=== PATIENT | male | born 1975 | race Caucasian/White ===

== ENCOUNTER 2017-02-03 17:01 | Emergency (ER) | payer MEDICAID ==
[~2017-02-03] VITALS: Ht 182.9 cm; Wt 94.8 kg
[~2017-02-03 17:01] MED LIST: CYCL-259 PO; DIAZ10TA PO; FAMO-79 PO; GABA-827 PO; GABA300C10 PO; HYDR10TA4 PO; HYDR50CA PO; HYDR50TA13 PO; IBUP200T48 PO; LURA20TA PO; LURA40TA PO; LUTE40CA PO; METH750T87 PO; NAPR250T6 PO; OMEP10CA2 PO; ONDA4TAB12 PO; PROC5TAB40 PO; QUET200T4 PO; TRAZ100T15 PO
[2017-02-03 17:14] VITALS: BP 110/75
[2017-02-03] MEDS ORDERED: DIAZEPAM 5 MG TABLET PO ONE (18:00)
[2017-02-03] MEDS ORDERED: DIAZEPAM 5 MG TABLET ONE (18:08)
== END 2017-02-03 18:44 | disposition home or self-care (01) ==
LOC: ED 18:38
DX: S39.012A Strain of muscle, fascia and tendon of lower back, initial encounter (principal); M51.36 Other intervertebral disc degeneration, lumbar region; X58.XXXA Exposure to other specified factors, initial encounter; Y93.89 Activity, other specified; Y99.8 Other external cause status; Y92.89 Other specified places as the place of occurrence of the external cause
CPT/HCPCS: 72110; 99284; J7512

== ENCOUNTER 2017-06-17 10:42 | Emergency (ER) | payer MEDICAID ==
[~2017-06-17] VITALS: Ht 182.9 cm; Wt 98.1 kg
[~2017-06-17 10:42] MED LIST changes: -IBUP200T48 PO; +IBUP200T49 PO
[2017-06-17] MEDS ORDERED: DIAZEPAM 5 MG TABLET PO ONE (11:30)
[2017-06-17] MEDS ORDERED: HYDROcodone/APAP 5/325 TABLET PO ONE (11:30)
[2017-06-17] MEDS ORDERED: KETOROLAC 30 MG/1 ML IM ONE (11:30)
[2017-06-17] MEDS ORDERED: HYDROcodone/APAP 5/325 TABLET ONE (11:36)
[2017-06-17] MEDS ORDERED: DIAZEPAM 5 MG TABLET ONE (11:36)
[2017-06-17] MEDS ORDERED: KETOROLAC 30 MG/1 ML ONE (11:36)
[2017-06-17 12:19] VITALS: BP 124/62
== END 2017-06-17 12:27 | disposition home or self-care (01) ==
LOC: ED 12:15
DX: S39.012A Strain of muscle, fascia and tendon of lower back, initial encounter (principal); M19.90 Unspecified osteoarthritis, unspecified site; G43.909 Migraine, unspecified, not intractable, without status migrainosus; G89.29 Other chronic pain; F10.20 Alcohol dependence, uncomplicated; F17.200 Nicotine dependence, unspecified, uncomplicated; Y93.89 Activity, other specified; Y92.89 Other specified places as the place of occurrence of the external cause; Y99.8 Other external cause status; X58.XXXA Exposure to other specified factors, initial encounter
CPT/HCPCS: 72110; 96372; 99284; J1885

== ENCOUNTER 2017-10-21 17:34 | Emergency (ER) | payer MEDICAID ==
[~2017-10-21] VITALS: Ht 182.9 cm; Wt 94.0 kg
[~2017-10-21 17:34] MED LIST changes: +TRAZ-137 PO; -TRAZ100T15 PO
[2017-10-21 17:42] VITALS: BP 109/75
[2017-10-21 18:06] LABS: BASOPHILS # (AUTO) 0.04 x10^3/uL (0-0.1); BASOPHILS % (AUTO) 1 % (0-1); EOSINOPHILS # (AUTO) 0.16 x10^3/uL (0-0.4); EOSINOPHILS % (AUTO) 2 % (1-7); LYMPHOCYTES # (AUTO) 2.57 x10^3/uL (1-3.4); LYMPHOCYTES % (AUTO) 38 % (22-44); MD NO; MEAN CORPUSCULAR HEMOGLOBIN 29.2 pg (27.5-34.5); MEAN CORPUSCULAR HGB CONC 34.7 g/dL (33.2-36.2); MEAN PLATELET VOLUME 9.1 fL (7.4-10.4); MONOCYTES # (AUTO) 0.49 x10^3/uL (0.2-0.8); MONOCYTES % (AUTO) 7 % (2-9); NEUTROPHILS # (AUTO) 3.46 x10^3/uL (1.8-6.8); NEUTROPHILS % (AUTO) 52 % (42-75); PLATELET COUNT 193 x10^3/uL (130-400); RED BLOOD COUNT 4.89 x10^6/uL (4.38-5.82); RED CELL DISTRIBUTION WIDTH 13.3 % (9.4-14.8)
[2017-10-21 18:11] LABS: ALANINE AMINOTRANSFERASE 36 U/L (12-78); ANION GAP 9 mmol/L (5-15); CALCIUM 8.5 mg/dL (8.5-10.1); CHLORIDE 106 mmol/L (98-107); CREATININE 1.45 mg/dL (0.7-1.3)
[2017-10-21 18:13] LABS: ALKALINE PHOSPHATASE 63 U/L (45-117); BILIRUBIN,TOTAL 0.4 mg/dL (0.2-1.0); TOTAL PROTEIN 7.8 g/dL (6.4-8.2)
== END 2017-10-21 19:35 | disposition left against medical advice (07) ==
LOC: ED 19:29
DX: R10.9 Unspecified abdominal pain (principal); M79.606 Pain in leg, unspecified
CPT/HCPCS: 36415; 80053; 85025; 99284

== ENCOUNTER 2017-11-01 03:18 | Emergency (ER) | payer MEDICAID ==
[~2017-11-01] VITALS: Ht 182.9 cm; Wt 93.1 kg
[2017-11-01 03:20] VITALS: BP 107/78
[2017-11-01] MEDS ORDERED: TRAZ-137 PO (03:24)
[2017-11-01] MEDS ORDERED: ONDA4TAB10 PO (03:24)
[2017-11-01] MEDS ORDERED: METHOCARBAMOL 750 MG TABLET ONE (03:47)
[2017-11-01] MEDS ORDERED: KETOROLAC 30 MG/1 ML ONE (03:47)
[2017-11-01] MEDS ORDERED: KETOROLAC 30 MG/1 ML IM ONE (04:00)
[2017-11-01] MEDS ORDERED: METHOCARBAMOL 750 MG TABLET PO ONE (04:00)
== END 2017-11-01 04:18 | disposition home or self-care (01) ==
LOC: ED 03:52
DX: M25.561 Pain in right knee (principal); M79.661 Pain in right lower leg; M25.562 Pain in left knee; M79.662 Pain in left lower leg; F10.20 Alcohol dependence, uncomplicated; G89.29 Other chronic pain; G43.909 Migraine, unspecified, not intractable, without status migrainosus; M54.9 Dorsalgia, unspecified; M25.572 Pain in left ankle and joints of left foot
CPT/HCPCS: 96372; 99283; J1885

== ENCOUNTER 2018-01-10 12:24 | Emergency (ER) | payer MEDICAID ==
[~2018-01-10] VITALS: Ht 182.9 cm; Wt 97.5 kg
[~2018-01-10 12:24] MED LIST changes: +ONDA4TAB10 PO
[2018-01-10 12:34] VITALS: BP 104/74
[2018-01-10] MEDS ORDERED: KETOROLAC 30 MG/1 ML ONE (13:48)
[2018-01-10] MEDS ORDERED: DIAZEPAM 5 MG TABLET ONE (13:48)
[2018-01-10] MEDS ORDERED: DIAZEPAM 5 MG TABLET PO ONE (14:00)
[2018-01-10] MEDS ORDERED: KETOROLAC 30 MG/1 ML IM ONE (14:00)
== END 2018-01-10 14:06 | disposition home or self-care (01) ==
LOC: ED 13:55
DX: S39.012A Strain of muscle, fascia and tendon of lower back, initial encounter (principal); G89.29 Other chronic pain; G43.909 Migraine, unspecified, not intractable, without status migrainosus; F17.200 Nicotine dependence, unspecified, uncomplicated; X58.XXXA Exposure to other specified factors, initial encounter; Y93.89 Activity, other specified; Y92.89 Other specified places as the place of occurrence of the external cause; Y99.8 Other external cause status
CPT/HCPCS: 96372; 99283; J1885

== ENCOUNTER 2018-05-18 09:33 | Emergency (ER) | payer MEDICAID ==
[~2018-05-18] VITALS: Ht 182.9 cm; Wt 97.0 kg
[2018-05-18 10:05] VITALS: BP 116/83
== END 2018-05-18 11:28 | disposition home or self-care (01) ==
LOC: ED 11:26
DX: S40.011A Contusion of right shoulder, initial encounter (principal); M54.2 Cervicalgia; M47.892 Other spondylosis, cervical region; G43.909 Migraine, unspecified, not intractable, without status migrainosus; G89.29 Other chronic pain; W01.0XXA Fall on same level from slipping, tripping and stumbling without subsequent striking against object, initial encounter; Y93.01 Activity, walking, marching and hiking; Y92.410 Unspecified street and highway as the place of occurrence of the external cause; Y99.8 Other external cause status
CPT/HCPCS: 72050; 99283

== ENCOUNTER 2018-06-07 05:07 | Emergency (ER) | payer MEDICAID ==
[~2018-06-07] VITALS: Ht 182.9 cm; Wt 96.8 kg
[2018-06-07] MEDS ORDERED: CYCLOBENZAPRINE 10 MG TABLET ONE (05:36)
[2018-06-07] MEDS ORDERED: KETOROLAC 30 MG/1 ML ONE (05:36)
--- NOTE | 2018-06-07 05:42 | NUR ---
PT. MEDICATED PER MAY. PT. TAKES FLEXERIL AT HOME BUT STATES "I COULDN'T GET MY MEDS BECAUSE MY THREW ME OUT." PT. REPORTS HE HAS HAD TORODOL SHOTS WELL IN THE PAST.
[2018-06-07] MEDS ORDERED: CYCLOBENZAPRINE 10 MG TABLET PO ONE (06:00)
[2018-06-07] MEDS ORDERED: KETOROLAC 30 MG/1 ML IM ONE (06:00)
[2018-06-07] MEDS ORDERED: ACETAMINOPHEN 500 MG TABLET ONE (06:08)
[2018-06-07 06:16] VITALS: BP 123/91
[2018-06-07] MEDS ORDERED: ACETAMINOPHEN 500 MG TABLET PO ONE (06:30)
== END 2018-06-07 06:17 | disposition home or self-care (01) ==
LOC: ED 06:15
DX: S39.012A Strain of muscle, fascia and tendon of lower back, initial encounter (principal); G43.909 Migraine, unspecified, not intractable, without status migrainosus; G89.29 Other chronic pain; W50.1XXA Accidental kick by another person, initial encounter; Y93.89 Activity, other specified; Y92.009 Unspecified place in unspecified non-institutional (private) residence as the place of occurrence of the external cause; Y99.8 Other external cause status
CPT/HCPCS: 96372; 99283; J1885

== ENCOUNTER 2018-06-24 04:56 | Emergency (ER) | payer MEDICAID ==
[~2018-06-24] VITALS: Ht 182.9 cm; Wt 95.8 kg
[2018-06-24 05:01] VITALS: BP 131/90
[2018-06-24] MEDS ORDERED: ONDANSETRON ODT 4 MG PO ONE (06:00)
[2018-06-24] MEDS ORDERED: hydrOXyzine 50MG TABLET PO ONE (06:00)
[2018-06-24] MEDS ORDERED: ONDANSETRON ODT 4 MG ONE (06:07)
[2018-06-24] MEDS ORDERED: hydrOXyzine 50MG TABLET ONE (06:07)
== END 2018-06-24 06:24 | disposition home or self-care (01) ==
LOC: ED 06:13
DX: F41.1 Generalized anxiety disorder (principal); R11.0 Nausea; G89.29 Other chronic pain; G43.909 Migraine, unspecified, not intractable, without status migrainosus
CPT/HCPCS: 99284; Q0162

== ENCOUNTER 2020-03-23 10:11 | Emergency (ER) | payer MEDICAID ==
[~2020-03-23] VITALS: Ht 182.9 cm; Wt 90.0 kg
[~2020-03-23 10:11] MED LIST changes: +HYDR-2995 PO; -HYDR10TA4 PO; -HYDR50TA13 PO; +HYDR50TA99 PO; +ONDA-89 PO; -ONDA4TAB12 PO; -TRAZ-137 PO; +TRAZ-175 PO
--- NOTE | 2020-03-23 10:20 | NUR ---
PT AMBULATED TO BR WITHOUT DIFFICULTY. ER PA AT BS NOW.
[2020-03-23] MEDS ORDERED: BUPR1FIL3 SL (10:25)
[2020-03-23] MEDS ORDERED: KETOROLAC 30 MG/1 ML IM ONE (10:30)
[2020-03-23] MEDS ORDERED: METHOCARBAMOL 750 MG TABLET PO ONE (10:30)
[2020-03-23] MEDS ORDERED: KETOROLAC 60 MG/2 ML ONE (10:30)
[2020-03-23] MEDS ORDERED: METHOCARBAMOL 750 MG TABLET ONE (10:30)
--- NOTE | 2020-03-23 10:40 | NUR ---
PT MEDICATED PER ORDERS. PT ALSO REQUESTING REFERRAL FOR [facility]. PT STATES HE TRIED A FEW PLACES BUT "THEY WOULDN'T TAKE ME". LIST OF LOCAL DETOX OPTIONS PROVIDED AND CALLED [facility] TO SPEAK WITH PT.
[2020-03-23 11:16] VITALS: BP 115/63
--- NOTE | 2020-03-23 11:23 | NUR ---
TARAH PAINTING WAS IN FOR RECHECK.
--- NOTE | 2020-03-23 11:36 | NUR ---
COFFEE PROVIDED TO PT. D/C INSTRUCTIONS, MEDS & F/U APPT RV'WD WITH PT, HE VERBALIZES UNDERSTANDING. RX GIVEN X2. PT AMBULATED OUT OF ED WITHOUT DIFFICULTY.
== END 2020-03-23 11:37 | disposition home or self-care (01) ==
LOC: ED 10:56
DX: S29.012A Strain of muscle and tendon of back wall of thorax, initial encounter (principal); M54.6 Pain in thoracic spine; G43.909 Migraine, unspecified, not intractable, without status migrainosus; W11.XXXA Fall on and from ladder, initial encounter; Y93.89 Activity, other specified; Y92.89 Other specified places as the place of occurrence of the external cause; Y99.8 Other external cause status
CPT/HCPCS: 96372; 99283; J1885

== ENCOUNTER 2020-04-12 10:27 | Emergency (ER) | payer MEDICAID ==
[~2020-04-12] VITALS: Ht 182.9 cm; Wt 87.0 kg
[~2020-04-12 10:27] MED LIST changes: +BUPR1FIL3 SL
--- NOTE | 2020-04-12 10:50 | NUR ---
WENT TO [facility] FOR ETOH WITHDRAW, STATES HE HAS SI, "I HAD MANY, MANY BAD THOUGHTS TODAY, BUT NO PLAN, LAST DRINK WAS A HR AGO, PT A& O X4, VSS, ROOM SECURE AND BELONGINGS PLACED IN LOCKER
[2020-04-12 11:16] LABS: BASOPHILS % (AUTO) 1 % (0-1); EOSINOPHILS % (AUTO) 0 % (1-7); LYMPHOCYTES % (AUTO) 19 % (22-44); MEAN CORPUSCULAR HEMOGLOBIN 27.8 pg (27.5-34.5); MEAN CORPUSCULAR HGB CONC 33.5 g/dL (33.2-36.2); MEAN PLATELET VOLUME 9.3 fL (7.4-10.4); MONOCYTES % (AUTO) 4 % (2-9); NEUTROPHILS % (AUTO) 77 % (42-75); PLATELET COUNT 157 x10^3/uL (130-400); RED BLOOD COUNT 4.46 x10^6/uL (4.38-5.82); RED CELL DISTRIBUTION WIDTH 16.3 % (9.4-14.8)
[2020-04-12 11:23] LABS: MD NO
[2020-04-12 11:26] LABS: ALBUMIN 3.5 g/dL (3.4-5.0); ANION GAP 6 mmol/L (5-15); CALCIUM 8.5 mg/dL (8.5-10.1); CHLORIDE 108 mmol/L (98-107)
[2020-04-12 11:27] LABS: CREATININE 0.65 mg/dL (0.7-1.3)
[2020-04-12 11:30] LABS: SALICYLATE LEVEL < 1.7 mg/dL (2.8-20.0)
[2020-04-12 11:39] LABS: AMPHETAMINE SCREEN, URINE Negative (Negative); BARBITURATE SCREEN, URINE Negative (Negative); BENZODIAZEPINE SCREEN, URINE Positive (Negative); CANNABINOID SCREEN, URINE Positive (Negative); COCAINE SCREEN, URINE Negative (Negative); METHADONE SCREEN, URINE Negative (Negative); OPIATE SCREEN, URINE Negative (Negative)
--- NOTE | 2020-04-12 11:50 | NUR ---
LATE ENTRY, MEAL ANGELITA PROVIDED, NO DISTRESS
--- NOTE | 2020-04-12 12:42 | NUR ---
pt in room, resting, no distress , seen by christo espinoza,
[2020-04-12] MEDS ORDERED: FLUOXETINE HCL 20 MG CAPSULE PO ONE (13:00)
[2020-04-12] MEDS ORDERED: BUPRENORPHINE/NALOXONE 8-2MG SL ONE (13:00)
[2020-04-12] MEDS ORDERED: HYDROXYZINE PAMOATE 50MG CAP PO ONE (13:00)
[2020-04-12 13:24] VITALS: BP 110/62
[2020-04-12] MEDS ORDERED: FLUOXETINE HCL 20 MG CAPSULE ONE (14:02)
[2020-04-12] MEDS ORDERED: HYDROXYZINE PAMOATE 50MG CAP ONE (14:08)
== END 2020-04-12 14:42 | disposition home or self-care (01) ==
LOC: ED 11:05
DX: R45.851 Suicidal ideations (principal); F10.120 Alcohol abuse with intoxication, uncomplicated; F32.9 Major depressive disorder, single episode, unspecified; Y90.9 Presence of alcohol in blood, level not specified
CPT/HCPCS: 36415; 80048; 80299; 80307; 80320; 80329; 82040; 85025; 99284; J0574; G0480

== ENCOUNTER 2020-05-25 06:14 | Emergency (ER) | payer MEDICAID ==
[~2020-05-25] VITALS: Ht 182.9 cm; Wt 84.6 kg
[~2020-05-25 06:14] MED LIST changes: -CYCL-259 PO; +CYCL10TA2 PO; +NAPR-872 PO; -NAPR250T6 PO
[2020-05-25 06:35] VITALS: BP 116/76
--- NOTE | 2020-05-25 06:35 | NUR ---
pt reports running out of anti nausea medications about a week ago and cannot get in to see his pcp anytime soon, reports he was hoping to get a medication refill. pt is nad, resting on gurney, appears comfortable, placed on spo2/bp monitoring at this time. vss. wctm
--- NOTE | 2020-05-25 06:52 | NUR ---
Patient given discharge instructions and they have confirmed that they understand the instructions. Patient ambulatory with steady gait. nad, denies additional questions or needs, no personal belongings left in room after dc
== END 2020-05-25 07:07 | disposition home or self-care (01) ==
LOC: ED 06:45
DX: R11.0 Nausea (principal); Z76.0 Encounter for issue of repeat prescription; G43.909 Migraine, unspecified, not intractable, without status migrainosus
CPT/HCPCS: 99281

== ENCOUNTER 2020-06-19 09:48 | Emergency (ER) | payer MEDICAID ==
[~2020-06-19] VITALS: Ht 182.9 cm; Wt 81.1 kg
--- NOTE | 2020-06-19 10:02 | NUR ---
BILAT HIP PAIN, R WORSE THAN L, THAT SHOOTS DOWN LEGS X 1 WEEK. PT STATES HE WALKS EVERYWHERE HE DOES NOT HAVE A CAR, AND THIS IS EFFECTING HIS WALKING. PT DENIES NUMBNESS/TINGLING, LOSE OF BOWEL CONTROL, AND TRAMA. POSTIONED TO COMFORT, HOOKED UP TO MONITORS, VSS, NADN. AWAITING ORDERS.
[2020-06-19] MEDS ORDERED: KETOROLAC 30 MG/1 ML IM ONE (10:30)
[2020-06-19] MEDS ORDERED: KETOROLAC 60 MG/2 ML ONE (10:40)
[2020-06-19 10:46] VITALS: BP 111/78
--- NOTE | 2020-06-19 10:46 | NUR ---
PT BACK FROM XRAY, NADN, VSS, MEDICATED PER EMAR
--- NOTE | 2020-06-19 11:55 | NUR ---
Patient/Caregiver given discharge instructions and they have confirmed that they understand the instructions. Patient ambulatory with steady gait.
== END 2020-06-19 11:57 | disposition home or self-care (01) ==
LOC: ED 10:03
DX: M76.9 Unspecified enthesopathy, lower limb, excluding foot (principal); I10 Essential (primary) hypertension
CPT/HCPCS: 73502; 96372; 99283; J1885

== ENCOUNTER 2020-07-24 01:36 | Emergency (ER) | payer MEDICAID ==
[~2020-07-24] VITALS: Ht 180.3 cm; Wt 82.0 kg
[2020-07-24 01:41] VITALS: BP 123/74
[2020-07-24] MEDS ORDERED: PROMETHAZINE 25 MG/ML, 1ML ONE (02:17)
[2020-07-24] MEDS ORDERED: PROMETHAZINE 25 MG/ML, 1ML IM ONE (02:30)
== END 2020-07-24 02:49 | disposition home or self-care (01) ==
LOC: ED 02:10
DX: Z00.8 Encounter for other general examination (principal); I10 Essential (primary) hypertension; G43.909 Migraine, unspecified, not intractable, without status migrainosus; F17.210 Nicotine dependence, cigarettes, uncomplicated
CPT/HCPCS: 96372; 99283; J2550

== ENCOUNTER 2020-08-08 09:55 | Emergency (ER) | payer MEDICAID ==
[~2020-08-08] VITALS: Ht 181.6 cm; Wt 83.9 kg
--- NOTE | 2020-08-08 10:03 | NUR ---
senior medical writer: EKG done in triage
--- NOTE | 2020-08-08 10:22 | NUR ---
DR BOSS AT BS FOR EXAM
--- NOTE | 2020-08-08 10:23 | NUR ---
PT C/O DIZZINESS X 5 DAYS. REPORTS DRINKING 2- 24 OZ BEERS TODAY, "I DRINK EVERY DAY", SMOKES MARIJUANA OCCASIONALLY. RESP EVEN & UNLABORED, SPEECH CLEAR, SKIN WNL. TAKES ZOFRAN FOR INTERMITTENT NAUSEA.
[2020-08-08 10:25] VITALS: BP 113/81
--- NOTE | 2020-08-08 10:28 | NUR ---
PT STATES "I HAVE TO BE SOMEWHERE IN AN HOUR" PT STATES "I CAN'T STAY" "I DON'T HAVE TIME FOR THE IV AND BLOOD WORK".
[2020-08-08] MEDS ORDERED: SODIUM CHLORIDE FLUSH 10ML SYR IVF ONE (10:30)
[2020-08-08] MEDS ORDERED: SODIUM CHLORIDE 0.9% 1,000ML IVBOLUS ONE (10:30)
--- NOTE | 2020-08-08 10:32 | NUR ---
PT ABLE TO GET DRESSED W/OUT INCIDENT. DISCUSSED INCREASING FLUID AND FOOD INTAKE. PT AMBULATORY TO DC DESK W/ STEADY GAIT. URGED PT TO RETURN IF SX WORSEN; UNDERSTANDING VERBALIZED.
== END 2020-08-08 10:35 | disposition home or self-care (01) ==
LOC: ED 10:10
DX: R42 Dizziness and giddiness (principal); I10 Essential (primary) hypertension; R94.31 Abnormal electrocardiogram [ECG] [EKG]
CPT/HCPCS: 93005; 99283

== ENCOUNTER 2020-08-11 18:49 | Emergency (ER) | payer MEDICAID ==
[~2020-08-11] VITALS: Ht 180.3 cm; Wt 88.0 kg
[2020-08-11 20:22] VITALS: BP 124/78
== END 2020-08-11 20:25 | disposition home or self-care (01) ==
LOC: ED 20:23
DX: R07.81 Pleurodynia (principal); W01.0XXA Fall on same level from slipping, tripping and stumbling without subsequent striking against object, initial encounter; Y93.89 Activity, other specified; Y92.410 Unspecified street and highway as the place of occurrence of the external cause; Y99.8 Other external cause status
CPT/HCPCS: 99283

== ENCOUNTER 2020-09-04 17:09 | Emergency (ER) | payer MEDICAID ==
[~2020-09-04] VITALS: Ht 180.3 cm; Wt 84.1 kg
[2020-09-04 17:41] VITALS: BP 102/63
--- NOTE | 2020-09-04 17:42 | NUR ---
BIB EMS, C/O ABD PAIN FOR PAST FEW WEEKS, PAIN WORSE OVER LAST 2 DAYS. +NAUSEA. PT RPTS DRANKING A FEW SHOTS OF VOLDKA AND A FEW BEERS TODAY. BP AND SP02 MONITORS IN PLACE, VSS, CALL LIGHT W/I REACH. POC DISCUSSED AND QUESTIONS ANSWERED.
[2020-09-04 18:18] LABS: BASOPHILS % (AUTO) 1 % (0-1); EOSINOPHILS % (AUTO) 2 % (1-7); LYMPHOCYTES % (AUTO) 44 % (22-44); MEAN CORPUSCULAR HEMOGLOBIN 29.1 pg (27.5-34.5); MEAN CORPUSCULAR HGB CONC 33.4 g/dL (33.2-36.2); MONOCYTES % (AUTO) 9 % (2-9); NEUTROPHILS % (AUTO) 44 % (42-75); PLATELET COUNT 160 x10^3/uL (130-400); RED BLOOD COUNT 4.27 x10^6/uL (4.38-5.82); RED CELL DISTRIBUTION WIDTH 14.8 % (9.4-14.8)
[2020-09-04 18:22] LABS: ALANINE AMINOTRANSFERASE 82 U/L (12-78); ALBUMIN 3.8 g/dL (3.4-5.0); ANION GAP 7 mmol/L (5-15); CALCIUM 8.4 mg/dL (8.5-10.1); CHLORIDE 112 mmol/L (98-107); CREATININE 0.84 mg/dL (0.7-1.3)
[2020-09-04 18:24] LABS: ALKALINE PHOSPHATASE 66 U/L (45-117); BILIRUBIN,TOTAL 0.2 mg/dL (0.2-1.0); TOTAL PROTEIN 7.2 g/dL (6.4-8.2)
--- NOTE | 2020-09-04 18:53 | NUR ---
BEDSIDE REPORT FROM KANDICE, TRANSFER OF CARE AT THIS TIME
--- NOTE | 2020-09-04 19:41 | NUR ---
Patient/Caregiver given discharge instructions and they have confirmed that they understand the instructions. Patient ambulatory with steady gait. NAD, all questions answered appropriately, denies additional needs at this time. No personal belongings left in room after discharge.
== END 2020-09-04 19:42 | disposition home or self-care (01) ==
LOC: ED 17:45
DX: R10.11 Right upper quadrant pain (principal); G43.909 Migraine, unspecified, not intractable, without status migrainosus
CPT/HCPCS: 36415; 76700; 80053; 83690; 85025; 99284

== ENCOUNTER 2020-09-22 15:45 | Emergency (ER) | payer MEDICAID ==
[~2020-09-22] VITALS: Ht 180.3 cm; Wt 83.0 kg
[2020-09-22] MEDS ORDERED: QUET25TA5 PO (15:57)
[2020-09-22] MEDS ORDERED: TRAZ-175 PO (15:57)
[2020-09-22] MEDS ORDERED: OMEP10CA5 PO (15:57)
--- NOTE | 2020-09-22 16:15 | NUR ---
PT RETURNED FROM XR
[2020-09-22] MEDS ORDERED: ONDANSETRON 2MG/ML, 2ML ONE (16:18)
[2020-09-22] MEDS ORDERED: ONDANSETRON 2MG/ML, 2ML IVPush ONE (16:30)
[2020-09-22] MEDS ORDERED: SODIUM CHLORIDE FLUSH 10ML SYR IVF ONE (16:30)
[2020-09-22 16:41] LABS: BASOPHILS % (AUTO) 0 % (0-1); EOSINOPHILS % (AUTO) 0 % (1-7); LYMPHOCYTES % (AUTO) 14 % (22-44); MEAN CORPUSCULAR HEMOGLOBIN 29.5 pg (27.5-34.5); MEAN CORPUSCULAR HGB CONC 34.2 g/dL (33.2-36.2); MEAN PLATELET VOLUME 9.5 fL (7.4-10.4); MONOCYTES % (AUTO) 6 % (2-9); NEUTROPHILS % (AUTO) 80 % (42-75); PLATELET COUNT 121 x10^3/uL (130-400); RED BLOOD COUNT 4.08 x10^6/uL (4.38-5.82); RED CELL DISTRIBUTION WIDTH 13.6 % (9.4-14.8)
--- NOTE | 2020-09-22 16:48 | NUR ---
REPORT GIVEN TO MARTA
[2020-09-22 16:50] LABS: ALANINE AMINOTRANSFERASE 24 U/L (12-78); ANION GAP 4 mmol/L (5-15); CALCIUM 8.8 mg/dL (8.5-10.1); CHLORIDE 106 mmol/L (98-107); CREATININE 0.86 mg/dL (0.7-1.3)
[2020-09-22 16:51] LABS: ALBUMIN 3.2 g/dL (3.4-5.0)
[2020-09-22 16:53] LABS: ALKALINE PHOSPHATASE 74 U/L (45-117); BILIRUBIN,TOTAL 0.7 mg/dL (0.2-1.0); TOTAL PROTEIN 7.5 g/dL (6.4-8.2)
[2020-09-22] MEDS ORDERED: MAALOX/HYOSCYAMINE/LIDOCAINE 45 ML BTL ONE (17:27)
[2020-09-22] MEDS ORDERED: MAALOX/HYOSCYAMINE/LIDOCAINE 45 ML BTL PO ONE (17:30)
[2020-09-22] MEDS ORDERED: hydrOXyzine 50MG TABLET ONE (17:56)
[2020-09-22] MEDS ORDERED: hydrOXyzine 50MG TABLET PO PRN (18:00)
[2020-09-22 18:01] VITALS: BP 115/74
--- NOTE | 2020-09-22 18:23 | NUR ---
PT REC'VD DISCHARGE INSTRUCTIONS AND EDUCATION. PT HAD NO FURTHER QUESTIONS. PT AMBULATED TO DC AREA, STEADY GAIT.
== END 2020-09-22 18:35 | disposition home or self-care (01) ==
LOC: ED 16:05
DX: K29.20 Alcoholic gastritis without bleeding (principal); F10.10 Alcohol abuse, uncomplicated; R11.2 Nausea with vomiting, unspecified; I10 Essential (primary) hypertension; G43.909 Migraine, unspecified, not intractable, without status migrainosus; Y90.0 Blood alcohol level of less than 20 mg/100 ml
CPT/HCPCS: 36415; 74021; 80053; 83690; 85025; 93005; 96374; 99285; J2405

== ENCOUNTER 2020-09-28 16:24 | Emergency (ER) | payer MEDICAID ==
[~2020-09-28] VITALS: Ht 177.8 cm; Wt 76.9 kg
[~2020-09-28 16:24] MED LIST changes: +OMEP10CA5 PO; +QUET25TA5 PO
--- NOTE | 2020-09-28 16:37 | NUR ---
PT BIB [facility]- REPORTS PT THINK HE HAD SZ, NO TRAUMA. HZ OF SZ R/T ETOH, HE HAD 3 BIG BEERS TODAY. REPORTS WHEN HE STANDS HE GETS LIGHT HEADED. 134/78, 97 HR. RA. NO PRIOR INTERVENTIONS. PT IN GOWN, PLACED ON MONITOR. PT REPORTS HE HAD 3 BEERS TODAY, AND DRANK 6-7 BOTTLE OF WATER BUT FEELS SLIGHTLY DEHYDRATED AND W/ HEAD FELT LIGHT HEADED. IS UNSURE IF HE HAD SZ, BUT HIS SZ R/T ETOH W/DRAWL. BEDSIDE.
[2020-09-28] MEDS ORDERED: SODIUM CHLORIDE 0.9% 1,000ML IVBOLUS ONE (17:00)
[2020-09-28] MEDS ORDERED: SODIUM CHLORIDE FLUSH 10ML SYR IVF ONE (17:00)
[2020-09-28 17:01] LABS: BASOPHILS % (AUTO) 1 % (0-1); EOSINOPHILS % (AUTO) 1 % (1-7); LYMPHOCYTES % (AUTO) 33 % (22-44); MEAN CORPUSCULAR HEMOGLOBIN 29.3 pg (27.5-34.5); MEAN CORPUSCULAR HGB CONC 34.1 g/dL (33.2-36.2); MEAN PLATELET VOLUME 8.3 fL (7.4-10.4); MONOCYTES % (AUTO) 6 % (2-9); NEUTROPHILS % (AUTO) 59 % (42-75); PLATELET COUNT 367 x10^3/uL (130-400); RED BLOOD COUNT 4.67 x10^6/uL (4.38-5.82)
[2020-09-28 17:04] LABS: ALBUMIN 3.4 g/dL (3.4-5.0); ANION GAP 11 mmol/L (5-15); CALCIUM 9.3 mg/dL (8.5-10.1); CHLORIDE 109 mmol/L (98-107)
--- NOTE | 2020-09-28 17:04 | NUR ---
PIV STARTED, IVF RUNNING. KAVIN RENEE. CALL LIGHT W/IN REACH.
[2020-09-28 17:15] LABS: ALANINE AMINOTRANSFERASE 25 U/L (12-78); ALKALINE PHOSPHATASE 64 U/L (45-117); BILIRUBIN,TOTAL 0.2 mg/dL (0.2-1.0); CREATININE 0.95 mg/dL (0.7-1.3); TOTAL PROTEIN 7.8 g/dL (6.4-8.2)
--- NOTE | 2020-09-28 17:18 | NUR ---
NOTIFIED PT WE NEED UA, HE DOESN'T FEEL HE NEEDS TO GO AT THIS TIME. CLEAN URINAL PROVIDED FOR WHEN PT IS READY.
--- NOTE | 2020-09-28 17:27 | NUR ---
PT PROVIDED DINNER. HE WAS ABLE TO VOID AND PROVIDE URINE SAMPLE, COLLECTED AND TUBED TO LAB. VSS, CONNORN, CALL LIGHT W/IN REACH.
[2020-09-28 18:03] LABS: MICROSCOPIC INDICATED
--- NOTE | 2020-09-28 18:13 | NUR ---
PT RESTING IN [facility], REPORTS FEELING BETTER AND ATE MOST OF HIS FOOD. VSS, NADN, CALL LIGHT W/IN REACH.
--- NOTE | 2020-09-28 18:54 | NUR ---
SBAR GIVEN TO CECILIO
--- NOTE | 2020-09-28 18:55 | NUR ---
Report from Sandy MARRERO
[2020-09-28 19:20] VITALS: BP 100/52
[2020-09-28] MEDS ORDERED: ONDANSETRON ODT 4 MG ONE (19:28)
--- NOTE | 2020-09-28 19:29 | NUR ---
TASK RN: Patient given discharge instructions and they have confirmed that they understand the instructions. Patient ambulatory with steady gait. NAD, all questions answered appropriately, denies additional needs at this time. No personal belongings left in room after discharge.
[2020-09-28] MEDS ORDERED: ONDANSETRON ODT 4 MG PO ONE (19:30)
== END 2020-09-28 19:48 | disposition home or self-care (01) ==
LOC: ED 17:00
DX: R55 Syncope and collapse (principal); E86.0 Dehydration; F10.220 Alcohol dependence with intoxication, uncomplicated; R42 Dizziness and giddiness; Y90.0 Blood alcohol level of less than 20 mg/100 ml; I10 Essential (primary) hypertension; G89.29 Other chronic pain; F17.200 Nicotine dependence, unspecified, uncomplicated
CPT/HCPCS: 36415; 80053; 80320; 81001; 83690; 85025; 96360; 99285; J7030; Q0162; G0480